=== PATIENT | female | born 1975 | race African-American/Black ===

== ENCOUNTER 2016-09-06 08:19 | Emergency (ER) | payer OTHER ==
[2016-09-06 08:28] VITALS: BP 113/73; PULSE 72; RESP 18; TEMP 98.6; O2SAT 97
--- NOTE | 2016-09-06 08:28 | UCPHY ---
H & P Patient Type: Established Chief Complaint Nursing Narrative: generalized hives and itching since Monday Time Seen by Provider: 09/06/16 08:28 HPI/ROS: CHIEF COMPLAINT: Hives HISTORY OF PRESENT ILLNESS: The patient presents to the ED with complaints of hives that that have been present since Monday. The patient denies an obvious precipitant to this skin reaction. She specifically denies new pets, medications, foods or topical ointments. The patient denies any complaints of chest pain or shortness of breath. The patient has no prior history of allergic reaction, asthma or eczema. REVIEW OF SYSTEMS: A comprehensive 10 point review of systems is otherwise negative aside from elements mentioned in the history of present illness. Source: Patient Exam Limitations: No limitations - Personal History LMP (Females 10-55): Over 28 Days Ago Current Tetanus/Diphtheria Vaccine: Yes - Medical/Surgical History Other PMH: knee surg, ortho surg - Family History Significant Family History: No pertinent family hx - Social History Smoking Status: Never smoked - Physical Exam Exam: General Appearance: Alert, no distress Eyes: Pupils equal and round no pallor or injection ENT, Mouth: Mucous membranes moist Respiratory: There are no retractions, lungs are clear to auscultation Cardiovascular: Regular rate and rhythm Gastrointestinal: Abdomen is soft and nontender, no masses, bowel sounds normal Neurological: A&O, normal motor function, normal sensory exam, normal cranial nerves Skin: Diffuse urticarial rash Musculoskeletal: Neck is supple nontender Extremities: symmetrical, full range of motion Constitutional: Initial Vital Signs Temperature (C) 37 C 09/06/16 08:24 Heart Rate 72 09/06/16 08:24 Respiratory Rate 18 09/06/16 08:24 Blood Pressure 113/73 09/06/16 08:24 O2 Sat (%) 97 09/06/16 08:24 O2 Delivery Mode Room Air Allergies/Adverse Reactions: Penicillins Allergy (Verified 09/06/16 08:25) Home Medications: Medication Instructions Recorded Disha 09/06/16 09/06/16 predniSONE [prednisone 20mg (RX)] 3 tab PO DAILY #15 tab 09/06/16 Medical Decision Making ED Course/Re-evaluation: The patient presents to the emergency department with the urticarial rash of uncertain etiology. The patient will be started on prednisone for 5 days. The patient is advised to limit breast-feeding 4 hours after taking the medication. The patient will be advised to follow up with her primary care provider for any unimproved symptoms. She should continue Benadryl as needed. Departure - Departure Disposition: Home, Routine, Self-Care Clinical Impression: Hives Condition: Good Instructions: Urticaria (ED) Additional Instructions: 1. Take prednisone as directed for next 5 days. Prednisone is safe to use while . It is recommended that you limit breast-feeding 4 hours after taking the medication. 2. Please follow up with your primary care provider for any unimproved symptoms. 3. Please return for worsening symptoms, difficulty breathing or other concerns. Referrals: Dang Guillen DO [Primary Care Provider] - As per Instructions Prescriptions: predniSONE [prednisone 20mg (RX)] 3 tab PO DAILY #15 tab - PQRS PQRS Measurement: Not applicable
== END 2016-09-06 08:42 | disposition home or self-care (01) ==
LOC: CED 08:19
DX: L50.9 Urticaria, unspecified (principal)
CPT/HCPCS: 99214-PO; G0463-PO